=== PATIENT | male | born 1980 | race Caucasian/White ===

== ENCOUNTER 2019-05-12 02:22 | Emergency (ER) | payer OTHER ==
[~2019-05-12] VITALS: Ht 182.9 cm; Wt 123.0 kg
[2019-05-12 04:41] LABS: BASOPHILS % 0.6 % (0.0-2.0); CHLORIDE 107 mEq/L (98-107); EOSINOPHILS % 1.9 % (0.0-5.0); HEMATOCRIT. 48.9 % (42.0-52.0); HEMOGLOBIN. 16.9 g/dL (14.0-18.0); LYMPHOCYTES % 25.7 % (20.0-50.0); MEAN CORPUSCULAR HEMOGLOBIN 30.1 pg (28.0-32.0); MEAN PLATELET VOLUME 8.4 fl (7.4-10.4); MONOCYTES % 6.3 % (2.0-8.0); NEUTROPHILS % 65.5 % (40.0-76.0); PLATELET 220 x1000/uL (130-400); RED BLOOD CELL COUNT 5.62 mill/uL (4.7-6.1); RED CELL DISTRIBUTION WIDTH 13.9 % (11.6-14.6)
[2019-05-12 04:45] LABS: ETHANOL BLOOD < 10 mg/dL
[2019-05-12 04:58] LABS: CLARITY URINE CLEAR (CLEAR); COLOR URINE YELLOW (YELLOW); KETONES URINE NEGATIVE (NEGATIVE); LEUKOCYTE ESTERASE URINE NEGATIVE (NEGATIVE); NITRITE URINE NEGATIVE (NEGATIVE); OCCULT BLOOD URINE 1+ (NEGATIVE); PH URINE 5.5 (4.5-8.0); PROTEIN URINE NEGATIVE (NEGATIVE); SPECIFIC GRAVITY URINE 1.025 (1.005-1.030); UROBILINOGEN URINE 0.2 E.U./dL (0.2-1.0)
[2019-05-12 05:22] LABS: *AMPHETAMINES SCREEN URINE NEGATIVE (NEGATIVE); *BARBITURATES SCREEN URINE NEGATIVE (NEGATIVE); *BENZODIAZEPINES SCREEN URINE NEGATIVE (NEGATIVE); *COCAINE SCREEN URINE NEGATIVE (NEGATIVE)
[2019-05-12 05:23] LABS: CANNABINOID URINE SCREEN NEGATIVE (NEGATIVE); METHADONE URINE SCREEN NEGATIVE (NEGATIVE); OPIATES URINE SCREEN NEGATIVE (NEGATIVE); PHENCYCLIDINE URINE SCREEN NEGATIVE (NEGATIVE)
[2019-05-12 08:10] VITALS: BP 121/71
== END 2019-05-12 08:16 | disposition home or self-care (01) ==
LOC: ER 02:48
DX: J20.9 Acute bronchitis, unspecified (principal); Z88.0 Allergy status to penicillin
CPT/HCPCS: 36415; 71045; 80305; 80320; 81003; 83880; 84484; 93005; 99284; G0480

== ENCOUNTER 2019-11-29 23:11 | Emergency (ER) | payer MEDICAID ==
[~2019-11-29] VITALS: Ht 182.9 cm; Wt 86.0 kg
[~2019-11-29 23:11] MED LIST: ALPR0.5T MT; ASPI325T85 PO; FAMO20TA8 PO; LIP40 PO; LISI-604 PO; LORA10TA7 PO
[2019-11-29] MEDS ORDERED: KETOROLAC 60MG/2ML VIAL IM ONE (23:30)
[2019-11-29] MEDS ORDERED: HYDROCODONE/ACETAMINOPHEN 5/325MG TABLET PO ONE (23:30)
[2019-11-30 01:08] VITALS: BP 132/68
== END 2019-11-30 01:09 | disposition home or self-care (01) ==
LOC: ER 23:11
DX: K08.89 Other specified disorders of teeth and supporting structures (principal); I10 Essential (primary) hypertension; Z86.73 Personal history of transient ischemic attack (TIA), and cerebral infarction without residual deficits; Z79.82 Long term (current) use of aspirin; Z79.899 Other long term (current) drug therapy; Z88.0 Allergy status to penicillin
CPT/HCPCS: 96372; 99283; J1885

== ENCOUNTER 2019-12-24 10:24 | Inpatient (IN) | payer MEDICAID ==
[~2019-12-24] VITALS: Ht 180.3 cm; Wt 113.6 kg
[2019-12-24] MEDS ORDERED: SODIUM CHLORIDE 0.9% 1,000 ML IV ONE (12:09)
[2019-12-24] MEDS ORDERED: ASPIRIN 81MG TABLET PO ONE (12:15)
[2019-12-24 12:32] LABS: BASOPHILS % 0.6 % (0.0-2.0); EOSINOPHILS % 0.6 % (0.0-5.0); HEMATOCRIT. 49.7 % (42.0-52.0); HEMOGLOBIN. 17.4 g/dL (14.0-18.0); LYMPHOCYTES % 15.2 % (20.0-50.0); MEAN CORPUSCULAR HEMOGLOBIN 30.4 pg (28.0-32.0); MEAN CORPUSCULAR VOLUME 87.1 fL (80.0-94.0); MONOCYTES % 5.8 % (2.0-8.0); NEUTROPHILS % 77.8 % (40.0-76.0); PLATELET 286 x1000/uL (130-400); RED BLOOD CELL COUNT 5.71 mill/uL (4.7-6.1); RED CELL DISTRIBUTION WIDTH 13.4 % (11.6-14.6)
[2019-12-24 12:38] LABS: CHLORIDE 108 mEq/L (98-107)
[2019-12-24 12:42] LABS: ETHANOL BLOOD < 10 mg/dL
[2019-12-24 12:47] LABS: D-DIMER 0.2 mg/L FEU (<0.50); PARTIAL THROMBOPLASTIN TIME 31.8 sec (23.4-31.0); PROTHROMBIN TIME 11.2 sec (9.6-11.0)
[2019-12-24 13:22] LABS: CLARITY URINE CLEAR (CLEAR); COLOR URINE YELLOW (YELLOW); KETONES URINE NEGATIVE (NEGATIVE); LEUKOCYTE ESTERASE URINE NEGATIVE (NEGATIVE); NITRITE URINE NEGATIVE (NEGATIVE); OCCULT BLOOD URINE 2+ (NEGATIVE); PROTEIN URINE 4+ (NEGATIVE); SPECIFIC GRAVITY URINE 1.019 (1.005-1.030); UROBILINOGEN URINE 0.2 E.U./dL (0.2-1.0)
[2019-12-24 13:46] LABS: *AMPHETAMINES SCREEN URINE NEGATIVE (NEGATIVE); *BARBITURATES SCREEN URINE NEGATIVE (NEGATIVE); *COCAINE SCREEN URINE NEGATIVE (NEGATIVE)
[2019-12-24 13:48] LABS: OPIATES URINE SCREEN NEGATIVE (NEGATIVE)
[2019-12-24 13:49] LABS: METHADONE URINE SCREEN NEGATIVE (NEGATIVE)
[2019-12-24 13:50] LABS: CANNABINOID URINE SCREEN NEGATIVE (NEGATIVE)
[2019-12-24 13:51] LABS: *BENZODIAZEPINES SCREEN URINE NEGATIVE (NEGATIVE)
[2019-12-24 13:52] LABS: PHENCYCLIDINE URINE SCREEN NEGATIVE (NEGATIVE)
[2019-12-24] MEDS ORDERED: ZOLPIDEM TARTRATE 5MG TABLET PO PRN (19:00)
[2019-12-24] MEDS ORDERED: ONDANSETRON HCL 4MG/2ML INJ IV PRN (19:00)
[2019-12-24] MEDS ORDERED: ACETAMINOPHEN 325MG TABLET PO PRN (19:00)
[2019-12-24 19:33] LABS: CREATINE KINASE 182 IU/L (39-308)
[2019-12-24] MEDS ORDERED: ATORVASTATIN CALCIUM 40MG TABLET PO SCH (21:00)
[2019-12-24 22:00] VITALS: BP 140/83
[2019-12-24] MEDS: ENOXAPARIN 30MG/0.3ML SYR SUBCUT SCH (22:55)
[2019-12-25] VITALS (10 sets, daily range): BP systolic 118–145; BP diastolic 68–89
[2019-12-25] MEDS: ENOXAPARIN 30MG/0.3ML SYR SUBCUT SCH (08:24)
[2019-12-25] MEDS ORDERED: ASPIRIN 81MG TABLET PO SCH (09:00)
[2019-12-25] MEDS ORDERED: LISINOPRIL 20MG TABLET PO SCH (09:00)
[2019-12-25 11:55] LABS: BASOPHILS % 0.5 % (0.0-2.0); EOSINOPHILS % 1.3 % (0.0-5.0); HEMATOCRIT. 48.1 % (42.0-52.0); HEMOGLOBIN. 16.8 g/dL (14.0-18.0); LYMPHOCYTES % 20.7 % (20.0-50.0); MEAN CORPUSCULAR HEMOGLOBIN 30.3 pg (28.0-32.0); MEAN CORPUSCULAR VOLUME 86.8 fL (80.0-94.0); MEAN PLATELET VOLUME 7.2 fl (7.4-10.4); NEUTROPHILS % 68.5 % (40.0-76.0); PLATELET 241 x1000/uL (130-400); RED BLOOD CELL COUNT 5.55 mill/uL (4.7-6.1); RED CELL DISTRIBUTION WIDTH 13.6 % (11.6-14.6)
[2019-12-25 12:00] LABS: CHLORIDE 110 mEq/L (98-107)
[2019-12-25] MEDS ORDERED: LORAZEPAM 1MG TABLET PO PRN (14:15)
== END 2019-12-25 18:06 | disposition home or self-care (01) | DRG 203 ==
LOC: ER 10:24 → 3WST 16:05 → EDBEDREQTM 16:11 → EDBEDREQ 16:11 → ENRESERV 20:29
PROVIDERS: ADMIT Internal Medicine; ATTEND Internal Medicine
DX: R07.89 Other chest pain (principal); E87.8 Other disorders of electrolyte and fluid balance, not elsewhere classified; F41.0 Panic disorder [episodic paroxysmal anxiety]; E78.00 Pure hypercholesterolemia, unspecified; D72.829 Elevated white blood cell count, unspecified; E78.5 Hyperlipidemia, unspecified; I10 Essential (primary) hypertension; R00.2 Palpitations; E66.9 Obesity, unspecified; Z91.013 Allergy to seafood; Z88.0 Allergy status to penicillin; Z79.82 Long term (current) use of aspirin; Z79.899 Other long term (current) drug therapy; Z68.34 Body mass index [BMI] 34.0-34.9, adult; Z83.3 Family history of diabetes mellitus; Z82.49 Family history of ischemic heart disease and other diseases of the circulatory system; I69.351 Hemiplegia and hemiparesis following cerebral infarction affecting right dominant side
CPT/HCPCS: 36415; 71045; 80048; 80053; 80305; 80320; 81003; 82550; 83880; 84484; 85025; 85379; 93005; 99285; J1650; J7030; G0480

== ENCOUNTER 2020-03-23 15:37 | Inpatient (IN) | payer MEDICAID ==
[~2020-03-23] VITALS: Ht 185.4 cm; Wt 108.0 kg
[2020-03-23] MEDS ORDERED: SODIUM CHLORIDE 0.9% 1,000 ML IV ONE (15:53)
[2020-03-23] MEDS ORDERED: ASPIRIN 81MG TABLET PO ONE (16:00)
[2020-03-23 16:59] LABS: BASOPHILS % 0.5 % (0.0-2.0); HEMOGLOBIN. 15.8 g/dL (14.0-18.0); LYMPHOCYTES % 26.4 % (20.0-50.0); MEAN CORPUSCULAR HEMOGLOBIN 30.1 pg (28.0-32.0); MEAN CORPUSCULAR VOLUME 87.6 fL (80.0-94.0); MEAN PLATELET VOLUME 7.3 fl (7.4-10.4); MONOCYTES % 7.3 % (2.0-8.0); NEUTROPHILS % 62.8 % (40.0-76.0); PLATELET 232 x1000/uL (130-400); RED BLOOD CELL COUNT 5.25 mill/uL (4.7-6.1); RED CELL DISTRIBUTION WIDTH 13.8 % (11.6-14.6)
[2020-03-23 17:06] LABS: CHLORIDE 109 mEq/L (98-107)
[2020-03-23 17:10] LABS: D-DIMER < 0.19 mg/L FEU (<0.50); PARTIAL THROMBOPLASTIN TIME 29.4 sec (23.4-31.0); PROTHROMBIN TIME 10.8 sec (9.6-11.0)
[2020-03-23 17:36] LABS: *AMPHETAMINES SCREEN URINE NEGATIVE (NEGATIVE); *BARBITURATES SCREEN URINE NEGATIVE (NEGATIVE); *BENZODIAZEPINES SCREEN URINE NEGATIVE (NEGATIVE); CANNABINOID URINE SCREEN NEGATIVE (NEGATIVE); OPIATES URINE SCREEN NEGATIVE (NEGATIVE); PHENCYCLIDINE URINE SCREEN NEGATIVE (NEGATIVE)
[2020-03-23 17:37] LABS: *COCAINE SCREEN URINE NEGATIVE (NEGATIVE); METHADONE URINE SCREEN NEGATIVE (NEGATIVE)
[2020-03-23 21:30] VITALS: BP 122/70
[2020-03-24 06:29] LABS: BASOPHILS % 0.5 % (0.0-2.0); EOSINOPHILS % 2.8 % (0.0-5.0); HEMATOCRIT. 45.1 % (42.0-52.0); HEMOGLOBIN. 15.3 g/dL (14.0-18.0); LYMPHOCYTES % 32.8 % (20.0-50.0); MEAN CORPUSCULAR HEMOGLOBIN 30.1 pg (28.0-32.0); MEAN CORPUSCULAR VOLUME 88.8 fL (80.0-94.0); MEAN PLATELET VOLUME 7.6 fl (7.4-10.4); MONOCYTES % 8.1 % (2.0-8.0); NEUTROPHILS % 55.8 % (40.0-76.0); PLATELET 229 x1000/uL (130-400); RED BLOOD CELL COUNT 5.09 mill/uL (4.7-6.1); RED CELL DISTRIBUTION WIDTH 13.5 % (11.6-14.6)
[2020-03-24 08:00] VITALS: BP 116/68
[2020-03-24 08:50] LABS: CHLORIDE 108 mEq/L (98-107)
[2020-03-24 09:00] LABS: LDL CHOLESTEROL 74 mg/dL (5-100)
[2020-03-24] MEDS ORDERED: ASPIRIN 325MG TABLET PO SCH (09:00)
[2020-03-24] MEDS ORDERED: FAMOTIDINE 20MG TABLET PO SCH (09:00)
[2020-03-24] MEDS ORDERED: LISINOPRIL 10MG TABLET PO SCH (09:00)
[2020-03-24 09:04] LABS: HDL CHOLESTEROL 34 mg/dL (40-59)
[2020-03-24] MEDS ORDERED: ENOXAPARIN 30MG/0.3ML SYR SUBCUT SCH (11:30)
[2020-03-24 12:00] VITALS: BP 112/71
[2020-03-24] MEDS ORDERED: ALPRAZOLAM 0.5 MG TABLET PO PRN (13:00)
[2020-03-24] MEDS ORDERED: LIP40 PO (15:32)
[2020-03-24] MEDS ORDERED: ASPI325T85 PO (15:32)
[2020-03-24 16:00] VITALS: BP 114/72
[2020-03-24 17:21] VITALS: BP 114/72
[2020-03-24] MEDS ORDERED: ATORVASTATIN CALCIUM 40MG TABLET PO SCH (21:00)
== END 2020-03-24 18:11 | disposition home or self-care (01) | DRG 48 ==
LOC: ER 15:37 → 5WST 17:43 → EDBEDREQ 17:49 → EDBEDREQTM 17:49 → ENRESERV 19:41
PROVIDERS: ADMIT Internal Medicine; ATTEND Internal Medicine
DX: G90.8 Other disorders of autonomic nervous system (principal); I10 Essential (primary) hypertension; R00.0 Tachycardia, unspecified; E78.5 Hyperlipidemia, unspecified; F41.9 Anxiety disorder, unspecified; E66.9 Obesity, unspecified; E87.8 Other disorders of electrolyte and fluid balance, not elsewhere classified; Z86.73 Personal history of transient ischemic attack (TIA), and cerebral infarction without residual deficits; Z88.0 Allergy status to penicillin; Z91.013 Allergy to seafood; Z79.82 Long term (current) use of aspirin; Z79.899 Other long term (current) drug therapy; Z68.31 Body mass index [BMI] 31.0-31.9, adult
CPT/HCPCS: 36415; 70551; 71045; 80048; 80053; 80061; 80305; 82962; 83880; 84484; 85025; 85379; 93005; 93306; 93880; 99285; J1650; J7030

== ENCOUNTER 2020-11-25 14:49 | Emergency (ER) | payer MEDICAID ==
[~2020-11-25] VITALS: Ht 172.7 cm; Wt 83.0 kg
[~2020-11-25 14:49] MED LIST changes: +ASPI-867 PO; -ASPI325T85 PO; -LISI-604 PO; +LISI20TA31 PO
[2020-11-25] MEDS ORDERED: SODIUM CHLORIDE 0.9% 1,000 ML IV ONE (16:30)
[2020-11-25 16:46] LABS: BASOPHILS % 0.5 % (0.0-2.0); EOSINOPHILS % 0.6 % (0.0-5.0); HEMATOCRIT. 42.9 % (42.0-52.0); LYMPHOCYTES % 16.4 % (20.0-50.0); MEAN CORPUSCULAR HEMOGLOBIN 29.5 pg (28.0-32.0); MEAN CORPUSCULAR VOLUME 84.3 fL (80.0-94.0); MEAN PLATELET VOLUME 7.2 fl (7.4-10.4); MONOCYTES % 7.3 % (2.0-8.0); NEUTROPHILS % 75.2 % (40.0-76.0); PLATELET 229 x1000/uL (130-400); RED BLOOD CELL COUNT 5.08 mill/uL (4.7-6.1); RED CELL DISTRIBUTION WIDTH 14.1 % (11.6-14.6)
[2020-11-25 16:51] LABS: CHLORIDE 108 mEq/L (98-107)
[2020-11-25 18:40] VITALS: BP 121/84
== END 2020-11-25 18:42 | disposition home or self-care (01) ==
LOC: ER 14:49
DX: R00.2 Palpitations (principal); F41.9 Anxiety disorder, unspecified; I10 Essential (primary) hypertension; Z91.013 Allergy to seafood; Z79.899 Other long term (current) drug therapy; Z98.890 Other specified postprocedural states; Z86.73 Personal history of transient ischemic attack (TIA), and cerebral infarction without residual deficits
CPT/HCPCS: 36415; 71045; 80053; 83690; 84443; 84484; 85025; 93005; 96360; 99285; J7030

== ENCOUNTER 2021-12-24 07:34 | Emergency (ER) | payer BC, MEDICAID ==
[~2021-12-24] VITALS: Ht 180.3 cm; Wt 140.0 kg
[2021-12-24 09:09] LABS: BASOPHILS % 0.5 % (0.0-2.0); EOSINOPHILS % 2.4 % (0.0-5.0); HEMATOCRIT. 44.7 % (42.0-52.0); LYMPHOCYTES % 16.9 % (20.0-50.0); MEAN CORPUSCULAR HEMOGLOBIN 28.5 pg (28.0-32.0); MEAN CORPUSCULAR VOLUME 84.8 fL (80.0-94.0); MONOCYTES % 6.4 % (2.0-8.0); NEUTROPHILS % 73.8 % (40.0-76.0); PLATELET 266 x1000/uL (130-400); RED BLOOD CELL COUNT 5.27 mill/uL (4.7-6.1); RED CELL DISTRIBUTION WIDTH 13.8 % (11.6-14.6)
[2021-12-24 09:18] LABS: CHLORIDE 107 mEq/L (98-107)
[2021-12-24] MEDS ORDERED: FLUT9.9S BOTHNSTRLS (10:35)
[2021-12-24] MEDS ORDERED: AZIT250T12 PO (10:35)
[2021-12-24] MEDS ORDERED: TOPUD PO (10:35)
[2021-12-24 10:49] VITALS: BP 120/75
== END 2021-12-24 10:51 | disposition home or self-care (01) ==
LOC: ER 07:34
DX: J32.9 Chronic sinusitis, unspecified (principal); R74.01 Elevation of levels of liver transaminase levels; D72.829 Elevated white blood cell count, unspecified; I10 Essential (primary) hypertension; I69.351 Hemiplegia and hemiparesis following cerebral infarction affecting right dominant side; Z91.013 Allergy to seafood
CPT/HCPCS: 36415; 71045; 80053; 85025; 99284

== ENCOUNTER 2022-04-23 02:24 | Emergency (ER) | payer BC ==
[~2022-04-23] VITALS: Ht 188 cm; Wt 127.0 kg
[~2022-04-23 02:24] MED LIST changes: +AZIT250T12 PO; +FLUT9.9S BOTHNSTRLS; +TOPUD PO
[2022-04-23] MEDS ORDERED: OFLO5DRO4 LEFT EAR (04:16)
[2022-04-23] MEDS ORDERED: LEVO-65 MT (04:17)
[2022-04-23 04:30] VITALS: BP 158/95
== END 2022-04-23 04:38 | disposition home or self-care (01) ==
LOC: ER 02:24
DX: H60.92 Unspecified otitis externa, left ear (principal); Z91.013 Allergy to seafood; Z86.73 Personal history of transient ischemic attack (TIA), and cerebral infarction without residual deficits; Z79.899 Other long term (current) drug therapy
CPT/HCPCS: 99283; Z7610

== ENCOUNTER 2023-07-19 15:16 | Emergency (ER) | payer MEDICAID ==
[~2023-07-19] VITALS: Ht 185.4 cm; Wt 125.0 kg
[~2023-07-19 15:16] MED LIST changes: +LEVO-65 MT; +OFLO5DRO4 LEFT EAR
[2023-07-19 15:19] VITALS: O2SAT 98
[2023-07-19] MEDS ORDERED: FLUORESCEIN SODIUM 1MG/STRIP LEFTEYE ONE (17:00)
[2023-07-19] MEDS ORDERED: TETRACAINE 0.5% OPHTH DROPS 4ML EACHEYE ONE (17:00)
[2023-07-19 17:42] VITALS: BP 122/79; PULSE 116; RESP 18; TEMP 98.2
== END 2023-07-19 17:43 | disposition home or self-care (01) ==
LOC: ER 15:16
DX: T26.61XA Corrosion of cornea and conjunctival sac, right eye, initial encounter (principal); E78.00 Pure hypercholesterolemia, unspecified; I10 Essential (primary) hypertension; Z86.73 Personal history of transient ischemic attack (TIA), and cerebral infarction without residual deficits; Z88.0 Allergy status to penicillin; Z91.013 Allergy to seafood; Y93.89 Activity, other specified; Y92.89 Other specified places as the place of occurrence of the external cause; Y99.8 Other external cause status
CPT/HCPCS: 99283

== ENCOUNTER 2023-08-24 07:33 | Emergency (ER) | payer MEDICAID ==
[~2023-08-24] VITALS: Ht 190.5 cm; Wt 127.0 kg
[2023-08-24 07:36] VITALS: O2SAT 97
[2023-08-24] MEDS: TETRACAINE 0.5% OPHTH DROPS 4ML RIGHTEYE ONE (09:23)
[2023-08-24] MEDS: FLUORESCEIN SODIUM 1MG/STRIP RIGHTEYE ONE (09:23)
[2023-08-24] MEDS ORDERED: DEXT15DR5 EACHEYE (09:28)
[2023-08-24 10:43] VITALS: BP 127/77; PULSE 88; RESP 17; TEMP 98.2
== END 2023-08-24 10:48 | disposition home or self-care (01) ==
LOC: ER 07:33
DX: H10.211 Acute toxic conjunctivitis, right eye (principal); I10 Essential (primary) hypertension; E78.00 Pure hypercholesterolemia, unspecified; Z79.899 Other long term (current) drug therapy; Z91.013 Allergy to seafood; Z86.73 Personal history of transient ischemic attack (TIA), and cerebral infarction without residual deficits
CPT/HCPCS: 99283

== ENCOUNTER 2023-09-19 08:17 | Emergency (ER) | payer MEDICAID ==
[~2023-09-19] VITALS: Ht 180.3 cm; Wt 127.0 kg
[~2023-09-19 08:17] MED LIST changes: +DEXT15DR5 EACHEYE
[2023-09-19 08:20] VITALS: O2SAT 100
[2023-09-19] MEDS: FLUORESCEIN SODIUM 1MG/STRIP BOTHEYE ONE (10:00)
[2023-09-19] MEDS: TETRACAINE 0.5% OPHTH DROPS 4ML BOTHEYE ONE (10:00)
[2023-09-19] MEDS ORDERED: SULFAMETHOXAZOLE/TRIMETHOPRIM 800/160MG TABLET PO SCH (10:30)
[2023-09-19 11:25] VITALS: BP 117/82; PULSE 86; RESP 18; TEMP 97.8
== END 2023-09-19 11:29 | disposition home or self-care (01) ==
LOC: ER 08:17
DX: H10.211 Acute toxic conjunctivitis, right eye (principal); H10.212 Acute toxic conjunctivitis, left eye; E78.00 Pure hypercholesterolemia, unspecified; I10 Essential (primary) hypertension; Z91.013 Allergy to seafood; Z79.899 Other long term (current) drug therapy; Z86.73 Personal history of transient ischemic attack (TIA), and cerebral infarction without residual deficits
CPT/HCPCS: 99283

== ENCOUNTER 2024-03-07 01:46 | Emergency (ER) | payer MEDICAID ==
[~2024-03-07] VITALS: Ht 177.8 cm; Wt 123.0 kg
[2024-03-07 01:53] VITALS: O2SAT 97
[2024-03-07 02:45] LABS: BASOPHILS % 0.8 % (0.0-2.0); EOSINOPHILS % 2.1 % (0.0-5.0); HEMATOCRIT. 43.1 % (42.0-52.0); HEMOGLOBIN. 14.7 g/dL (14.0-18.0); LYMPHOCYTES % 27.7 % (20.0-50.0); MEAN CORPUSCULAR HEMOGLOBIN 29.5 pg (28.0-32.0); MEAN CORPUSCULAR HGB CONC 34.1 g/dL (31.0-37.0); MEAN CORPUSCULAR VOLUME 86.3 fL (80.0-94.0); MEAN PLATELET VOLUME 7.2 fl (7.4-10.4); MONOCYTES % 6.3 % (2.0-8.0); NEUTROPHILS % 63.1 % (40.0-76.0); PLATELET 209 x1000/uL (130-400); RED BLOOD CELL COUNT 4.99 mill/uL (4.7-6.1); RED CELL DISTRIBUTION WIDTH 13.7 % (11.6-14.6); WHITE BLOOD COUNT 8.2 x1000/uL (4.5-11.0)
[2024-03-07 02:56] LABS: CARBON DIOXIDE 28 mEq/L (21-32); CHLORIDE 107 mEq/L (98-107); POTASSIUM 3.4 mEq/L (3.5-5.1); SODIUM 139 mEq/L (136-145)
[2024-03-07 02:57] LABS: CALCIUM 9.1 mg/dL (8.7-10.4)
[2024-03-07 03:02] LABS: CLARITY URINE CLEAR (CLEAR); COLOR URINE YELLOW (YELLOW); CREATININE 0.8 mg/dL (0.6-1.3); GLUCOSE 100 mg/dL (70-105); GLUCOSE URINE NEGATIVE (NEGATIVE); KETONES URINE NEGATIVE (NEGATIVE); LEUKOCYTE ESTERASE URINE NEGATIVE (NEGATIVE); NITRITE URINE NEGATIVE (NEGATIVE); OCCULT BLOOD URINE 1+ (NEGATIVE); PH URINE 6.5 (4.5-8.0); PROTEIN URINE TRACE (NEGATIVE); SPECIFIC GRAVITY URINE 1.023 (1.005-1.030); UREA NITROGEN BLOOD 9 mg/dL (9-23)
[2024-03-07 03:03] LABS: ALANINE AMINOTRANSFERASE 40 IU/L (10-49); ALBUMIN 4.5 g/dL (3.2-4.8); ASPARTATE AMINOTRANSFERASE 32 IU/L (<34)
[2024-03-07 03:04] LABS: BILIRUBIN DIRECT 0.3 mg/dL (<=3.0); BILIRUBIN TOTAL 0.9 mg/dL (0.1-1.0); PROTEIN TOTAL 7.4 g/dL (6.0-8.3)
[2024-03-07] MEDS: MAGNESIUM/ALUMINUM HYDROXIDE/SIMETHICONE 30ML UDC PO STA (03:20)
[2024-03-07] MEDS ORDERED: PROT20 MT (05:04)
[2024-03-07 05:48] VITALS: BP 131/76; PULSE 67; RESP 18; TEMP 36.61404; O2SAT 97
[2024-03-07 06:13] LABS: BACTERIA URINE TRACE; MUCUS URINE 1+ /lpf (NONE/TRACE); SQUAMOUS EPITHELIAL CELL URINE RARE /lpf (RARE/1+)
== END 2024-03-07 05:49 | disposition home or self-care (01) ==
LOC: ER 01:46
DX: R10.9 Unspecified abdominal pain (principal); I10 Essential (primary) hypertension; E78.00 Pure hypercholesterolemia, unspecified; Z91.013 Allergy to seafood; Z79.899 Other long term (current) drug therapy; Z86.73 Personal history of transient ischemic attack (TIA), and cerebral infarction without residual deficits
CPT/HCPCS: 36415; 71045; 80048; 80076; 81003; 85025; 99284